=== PATIENT | male | born 1975 | race Caucasian/White ===

== ENCOUNTER → 2017-05-19 08:12 | Day surgery (SDC) | payer MEDICARE, OTHER ==
--- NOTE | 2017-05-12 03:40 | HP ---
PREOPERATIVE HISTORY AND PHYSICAL: DATE OF ADMISSION/SURGERY: 05/19/17 [facility] CHIEF COMPLAINT: Triggering of the left thumb, index, and small fingers. HISTORY OF PRESENT ILLNESS: Nathen is a 42-year-old male who has a long history of several trigger fingers. He has failed conservative treatment including cortisone injections. He presents now for left trigger thumb, little finger and index finger releases, left hand. PAST MEDICAL HISTORY: Significant for: 1. Fibromyalgia. 2. Cervical disk disease. 3. Brachial neuritis. 4. Vascular disease. 5. Ulnar neuropathy. PAST SURGICAL HISTORY: Significant for: 1. Cervical spine fusion. 2. Appendectomy. 3. Lower extremity bypass. 4. Ulnar nerve decompression. 5. Cervical fusion. MEDICATIONS: 1. Acidophilus 1 p.o. daily. 2. Atorvastatin calcium. 3. Baclofen. 4. BuSpar 5 mg 2 p.o. daily. 5. Claritin 10 mg p.o. daily p.r.n. 6. Cymbalta 60 mg p.o. daily. 7. Enalapril 20 mg p.o. daily. 8. Flaxseed oil 1000 mg p.o. daily. 9. Humalog 100 units/mL sliding scale. 10. Lyrica 150 mg p.o. t.i.d. 11. Multivitamin 1 p.o. daily. DRUG ALLERGIES: To RITALIN and TETRACYCLINE. SOCIAL HISTORY: He smokes cigarettes regularly. Denies alcohol use. He is currently not working. PHYSICAL EXAMINATION VITAL SIGNS: He is 65 inches in height, weight 146. Pulse 72, blood pressure 122/78. HEENT: Exam is unremarkable. His eye movements are concentric. NECK: He has good range of motion of his neck without pain. No masses are palpated. LUNGS: His lungs are clear to auscultation, good inspiratory effort, no wheezing. CARDIAC: Regular rate and rhythm without murmur. PERIPHERAL VASCULAR: He has palpable pulses and no peripheral edema. EXTREMITIES: He has tenderness at the A1 pulleys of the left index, thumb, and small fingers. He has history of an amputation of the ring finger. Neurovascular function is intact. NEUROLOGICAL: He is alert and oriented without focal deficits. SKIN: Intact. IMPRESSION: Trigger fingers of the left thumb, index, and small finger. PLAN: For trigger finger release, left thumb, index, and small finger. He was prescribed Ultracet for postop pain control. We will see him back in followup 10 to 14 days postop. [id number]/[facility] #: [id number] SONIDO
[~2017-05-19 08:12] MED LIST: Buffered Lidocaine 0.9% SYRIN* 5 ML/SYR SYRINGE INTRADERM ONE; Lidocaine 1% INJ* 10 MG/ML 30 ML SDV ONE; Lidocaine 2% PF * 5 ML VIAL ONE; Midazolam* 1 MG/ML 2 ML VIAL (2 MG) ONE; Propofol* 10 MG/ML 20 ML BTL IV PUSH ONE; fentaNYL* 50 MCG/ML 2 ML VIAL (100 MCG VIAL) ONE
[2017-05-19 10:09] VITALS: BP 105/62
--- NOTE | 2017-05-19 23:50 | OP ---
CC: Dr. Matthew OPERATIVE REPORT: DATE OF OPERATION: 05/19/17 DATE OF : 75 SURGEON: Sindy Matthew MD [employer] PROJECT MANAGER: PROSPER Chadwick ANESTHESIA: Local MAC. PRE-OP DIAGNOSIS: Left thumb, index, and small finger triggers. POST-OP DIAGNOSIS: Left thumb, index, and small finger triggers. OPERATIVE PROCEDURE: Left thumb, index, and small finger trigger release. INDICATION: Nathen is a 42-year-old male with triggering of his left thumb, index, and small finger. He has failed conservative treatment, presents for trigger finger release, left thumb, index, and sm all finger. ESTIMATED BLOOD LOSS: Zero. TOURNIQUET TIME: About 10 minutes. DESCRIPTION OF PROCEDURE: The patient was brought to the operating room, was given a sedation anest hetic, and a local infiltration of 10 cc of 1% plain lidocaine. The skin of his left hand and forear m was prepped and draped in the usual sterile fashion. The hand and forearm were exsanguinated and tourniquet elevated to 250 mmHg. A transverse incision was made centered over the A1 esthela of the left thumb, left index finger and left small finger. The digital neurovascular bundles were located and retracted by the surgical technology instructor, Junie Culver. Each A1 esthela was then incised longitudi isha completely releasing the flexor tendons, which showed small abrasion, but otherwise were intac t. There was some moderate amount of tenosynovitis and this was debrided. Wounds were irrigated an d the skin edges reapproximated with 4-0 nylon sutures. The wounds were dressed with Xeroform, 4x4, Webril, and an Jadiel wrap. The patient tolerated the procedure well and was brought to the recovery room in good condition. [id number]/[facility] #: [id number]
== END | disposition home or self-care (01) ==
LOC: OREAST 08:12
PROVIDERS: ATTEND Orthopaedic Surgery
DX: M65.312 Trigger thumb, left thumb (principal); M65.322 Trigger finger, left index finger; M65.352 Trigger finger, left little finger; M79.7 Fibromyalgia; Z72.0 Tobacco use; Z88.1 Allergy status to other antibiotic agents; E11.51 Type 2 diabetes mellitus with diabetic peripheral angiopathy without gangrene; Z79.4 Long term (current) use of insulin; Z96.41 Presence of insulin pump (external) (internal); I10 Essential (primary) hypertension; E11.40 Type 2 diabetes mellitus with diabetic neuropathy, unspecified; Z88.8 Allergy status to other drugs, medicaments and biological substances
CPT/HCPCS: J2001; J2250; J2704; J3010

== ENCOUNTER 2018-06-23 15:06 | Emergency (ER) | payer OTHER ==
[2018-06-23 15:24] VITALS: BP 125/78
--- NOTE | 2018-06-23 15:53 | UC ---
Complaint Male HPI - HPI Summary HPI Summary: Patient presents with a past medical history of DM1, with insulin pump, and UTI' s. He presents today with complaints of urinary urgency and frequency. He also complaints of right sided flank pain. He states these symptoms feel similar to when he has had a UTI. He denies fever, vomiting, diarrhea or anorexia. He does complain of chills and nausea. - History of Current Complaint Chief Complaint: UCGU Stated Complaint: URINARY COMPLAINT Time Seen by Provider: 06/23/18 15:36 Hx Obtained From: Patient Onset/Duration: Gradual Onset, Lasting Hours Timing: Constant Severity Initially: Moderate Severity Currently: Moderate Pain Intensity: 7 Character: Burning Aggravating Factor(s): Voiding Associated Signs And Symptoms: Positive: Back Pain - Allergies/Home Medications Allergies/Adverse Reactions: Allergies Allergy/AdvReac Type Severity Reaction Status Date / Time methylphenidate Allergy Severe Hives/Diff. Verified 06/23/18 15:24 [From Ritalin] Breathing/I tching lactose Allergy Intermediate Diarrhea Verified 06/23/18 15:24 ragweed pollen Allergy Mild Itching Verified 06/23/18 15:24 PMH/Surg Hx/FS Hx/Imm Hx Previously Healthy: Yes Endocrine History: Diabetes Other History Of: Anticoagulant Therapy - plavix - Surgical History Surgical History: Yes Surgery Procedure, Year, and Place: bilateral ulnar nerve decompression 10/2013. CERVICAL FUSION C6-C7, 10/2012, [facility], ACDF in December2016. KNEE MENISCUS REPAIR [place] [place] HIATAL HERNIA REPAIR[place] [place]. LEFT RING FINGER AMPUTATION, 2008,,. bilateral angioplasty legs 07/26/13, - NO STENTS. ANGIOPLASTY TO LEFT AND RIGHT ILIAC AND RIGHT FEMORAL FEBRUARY 19 2013 - [facility] - NO STENTS. RIGHT HAND CARPAL [id number] AND Lt - 2012. aug 2017 - dental extraction. 2016 - Lt TRIGGER FINGER. APPENDECTOMY. 04/2018 - lumbar spine surgery L4-L5 - Family History Known Family History: Positive: Unknown, Hypertension, Other - Dyslipidemia - Social History Occupation: Disabled Lives: Alone Alcohol Use: None Substance Use Type: None Substance Use Comment - Amount & Last Used: Medical Marijuana Smoking Status (MU): Current Every Day Smoker Type: Cigarettes Amount Used/How Often: 1 PPD Length of Time of Smoking/Using Tobacco: 20+ yrs Have You Smoked in the Last Year: Yes When Did the Patient Quit Smoking/Using Tobacco: 02/2013 Household Exposure Type: Cigarettes - Immunization History Most Recent Influenza Vaccination: 04/30/2013 Most Recent Tetanus Shot: 02/17/2011 Most Recent Pneumonia Vaccination: 2002 Review of Systems Constitutional: Negative Skin: Negative Eyes: Negative ENT: Negative Respiratory: Negative Cardiovascular: Negative Gastrointestinal: Negative Genitourinary: Negative Motor: Negative Neurovascular: Negative Musculoskeletal: Negative Neurological: Negative Psychological: Negative Is Patient Immunocompromised?: No All Other Systems Reviewed And Are Negative: Yes Physical Exam Triage Information Reviewed: Yes Appearance: Well-Appearing Vital Signs: Initial Vital Signs Temp 98.3 F 06/23/18 15:18 Pulse 86 06/23/18 15:18 Resp 16 06/23/18 15:18 BP 125/78 06/23/18 15:18 Pulse Ox 98 06/23/18 15:18 Eye Exam: Normal ENT Exam: Normal Neck exam: Normal Neck: Positive: 1 Respiratory Exam: Normal Cardiovascular Exam: Normal Abdominal Exam: Normal Musculoskeletal Exam: Normal Neurological Exam: Normal Psychological Exam: Normal Skin Exam: Normal Complaint Male Course/Dx - Course Course Of Treatment: Patient presents with a past medical history of DM1, with insulin pump. He states his glucose level was elevated eariler today in th 300's , so he skipped lunch. He presents with urinary urgency and frequency. A UA was obtained with 2+ glucose otherwise normal. His urinary symptoms could be undetectable UTI, and or glucosuria. I encouraged the patient to monitor his glucose level, increase fluids and if his symptoms persist to return tomorrow for re-evaluation and repeat UA. He had normal VS and was afebile and otherwise stable for outpatient follow up. He verbatlized understanding and in agreement with the discharge plan. - Differential Dx/Diagnosis Differential Diagnosis/HQI/PQRI: Other - Urinary urgency,Urinary frequency. glucosuria Provider Diagnoses: Urinary urgency. Urinary Frequency. Glucosuria Discharge - Sign-Out/Discharge Documenting (check all that apply): Patient Departure All imaging exams completed and their final reports reviewed: No Studies - Discharge Plan Condition: Stable Disposition: HOME Patient Education Materials: Urinary Urgency and Frequency (DC) Referrals: Matthieu Partida MD [Primary Care Provider] - - Billing Disposition and Condition Condition: STABLE Disposition: Home - Attestation Statements Document Initiated by Rajwinderibalma rosa: Nury
== END 2018-06-23 15:53 | disposition home or self-care (01) ==
LOC: UCEAST 15:06
DX: R39.15 Urgency of urination (principal); R81 Glycosuria; E10.9 Type 1 diabetes mellitus without complications; F17.210 Nicotine dependence, cigarettes, uncomplicated; Z79.4 Long term (current) use of insulin; Z88.8 Allergy status to other drugs, medicaments and biological substances; Z91.011 Allergy to milk products; Z91.018 Allergy to other foods
CPT/HCPCS: 81003; 99212; G0463

== ENCOUNTER 2019-03-11 10:46 | Emergency (ER) | payer MEDICARE ==
[2019-03-11 10:55] VITALS: BP 128/72
--- NOTE | 2019-03-11 11:44 | UC ---
Skin Complaint HPI - HPI Summary HPI Summary: 44-year-old male with history of type 1 diabetes presents with complaints of bee sting to the right arm with redness and tenderness that has progressively increased over the last 2 days. Denies fever, chills, swelling of the lips, tongue, throat, or difficulty breathing. - History of Current Complaint Chief Complaint: UCSkin Time Seen by Provider: 03/11/19 11:09 Stated Complaint: SKIN ISSUE Hx Obtained From: Patient Pain Intensity: 6 - Allergy/Home Medications Allergies/Adverse Reactions: Allergies Allergy/AdvReac Type Severity Reaction Status Date / Time methylphenidate Allergy Severe Hives/Diff. Verified 03/11/19 10:56 [From Ritalin] Breathing/I tching lactose Allergy Intermediate Diarrhea Verified 03/11/19 10:56 ragweed pollen Allergy Mild Itching Verified 03/11/19 10:56 Home Medications: Home Medications Hydrocodone/Acetaminophen [Vicodin 5-300 mg] 0.5 tab PO Q6HR 03/11/19 [History Confirmed 03/11/19] diphenhydrAMINE HCl [Benadryl Allergy] 25 mg PO DAILY WITH MEAL 03/11/19 [ History Confirmed 03/11/19] PMH/Surg Hx/FS Hx/Imm Hx Endocrine History: Diabetes, Dyslipidemia Cardiovascular History: Hypertension, Other - PAD GI/ History: Gastroesophageal Reflux Psychological History: Depression Other History Of: Anticoagulant Therapy - plavix - Surgical History Surgical History: Yes Surgery Procedure, Year, and Place: bilateral ulnar nerve decompression 10/2013. CERVICAL FUSION C6-C7, 10/2012, [facility], ACDF in December2016. KNEE MENISCUS REPAIR BILATERAL-[facility] – [place]. HIATAL HERNIA REPAIR-[facility] – [place], 1999. LEFT RING FINGER AMPUTATION, 2008,,. bilateral angioplasty legs 07/26/13, - NO STENTS. ANGIOPLASTY TO LEFT AND RIGHT ILIAC AND RIGHT FEMORAL FEBRUARY 19 2013 - [facility] - NO STENTS. RIGHT HAND CARPAL [id number] AND Lt - 2012. aug 2017 - dental extraction. 2016 - TRIGGER FINGER. APPENDECTOMY. 04/2018 - lumbar spine surgery L4-L5 - Family History Known Family History: Positive: Hypertension, Other - Dyslipidemia - Social History Occupation: Disabled Lives: With Family Alcohol Use: None Substance Use Type: Marijuana Substance Use Comment - Amount & Last Used: Medical Marijuana Smoking Status (MU): Heavy Every Day Tobacco Smoker Type: Cigarettes Amount Used/How Often: 12 cigarettes/day Length of Time of Smoking/Using Tobacco: 20+ yrs Have You Smoked in the Last Year: Yes When Did the Patient Quit Smoking/Using Tobacco: 02/2013 Household Exposure Type: Cigarettes - Immunization History Most Recent Influenza Vaccination: 04/30/2013 Most Recent Tetanus Shot: 02/17/2011 Most Recent Pneumonia Vaccination: 2002 Review of Systems All Other Systems Reviewed And Are Negative: Yes Constitutional: Negative: Fever, Chills Skin: Positive: Other - See HPI Respiratory: Positive: Negative Cardiovascular: Positive: Negative Gastrointestinal: Positive: Negative Genitourinary: Positive: Negative Musculoskeletal: Positive: Negative Neurological: Positive: Negative Physical Exam - Summary Physical Exam Summary: GENERAL APPEARANCE: Well developed, well nourished, alert and cooperative, and appears to be in no acute distress. CARDIAC: Normal S1 and S2. No S3, S4 or murmurs. Rhythm is regular. There is no peripheral edema, cyanosis or pallor. Extremities are warm and well perfused. Capillary refill is less than 2 seconds. Peripheral pulses intact. LUNGS: Clear to auscultation without rales, rhonchi, wheezing or diminished breath sounds. ABDOMEN: Positive bowel sounds. Soft, nondistended, nontender. No guarding or rebound. No masses or hepatosplenomegally. MUSKULOSKELETAL: ROM intact to all extremities. No joint erythema or tenderness. Normal muscular development. Normal gait. EXTREMITIES: Patient with full sleeve tattoo to the right arm. There is erythema noted to the uninked portions of the distal right upper arm and proximal forearm with increased warmth. No induration, fluctuance, or edema noted. Circulation and sensation intact. SKIN: Skin normal color, texture and turgor. Triage Information Reviewed: Yes Vital Signs: Initial Vital Signs Temp 98.7 F 03/11/19 10:52 Pulse 83 03/11/19 10:52 Resp 15 03/11/19 10:52 BP 128/72 03/11/19 10:52 Pulse Ox 100 03/11/19 10:52 Vital Signs Reviewed: Yes Course/Dx - Course Course Of Treatment: 44-year-old male with history of type 1 diabetes presents with complaints of bee sting to the right arm with redness and tenderness that has progressively increased over the last 2 days. Denies fever, chills, swelling of the lips, tongue, throat, or difficulty breathing. Afebrile. Vital signs stable. Patient with full sleeve tattoo to the right arm. There is erythema noted to the uninked portions of the distal right upper arm and proximal forearm with increased warmth. No induration, fluctuance, or edema noted. Circulation and sensation intact. Remainder of exam unremarkable. Discussed with the patient his symptoms may represent a severe localized reaction however with his history of diabetes and the fact that the redness has continued to spread I am concerned that this may be a cellulitis and am recommending that we treat with cephalexin 500 mg 3 times a day 7 days. He is to follow-up with his primary care provider in 3 days if symptoms are not improving. Anticipatory guidance and warning symptoms were reviewed with the patient. Verbalizes understanding and agrees with plan of care. - Differential Diagnoses - Skin Complaint Differential Diagnoses: Abscess, Cellulitis, Local Allergic Reaction - Diagnoses Provider Diagnosis: Cellulitis of right forearm Discharge - Sign-Out/Discharge Documenting (check all that apply): Patient Departure All imaging exams completed and their final reports reviewed: No Studies - Discharge Plan Condition: Stable Disposition: HOME Prescriptions: cephALEXin [Keflex] 500 mg PO TID #21 capsule Patient Education Materials: Cellulitis (ED) Referrals: Matthieu Partida MD [Primary Care Provider] - 3 Days Additional Instructions: The redness and swelling to her arm may be a severe localized reaction to the bee sting however with your history of diabetes, progressively worsening redness , and increased warmth we will treat you for a possible skin infection called cellulitis and starch on an antibiotic. Take cephalexin 500 mg 3 times a day for 7 days. Continue to take diphenhydramine (Benadryl) according to directions as needed for itching. Try applying a cool compress to the effected area for 15-20 minutes at least 4 times a day to help with the swelling. Follow-up with your primary care provider in 3 days if her symptoms are not improving. Seek immediate medical attention in the emergency room if you develop a fever greater than 100.5 F, have severe pain that is not managed with over-the- counter pain medication, redness that continues to spread, or any worsening of symptoms. - Billing Disposition and Condition Condition: STABLE Disposition: Home
== END 2019-03-11 12:01 | disposition home or self-care (01) ==
LOC: UCEAST 10:46
DX: T63.441A Toxic effect of venom of bees, accidental (unintentional), initial encounter (principal); L03.113 Cellulitis of right upper limb; W57.XXXA Bitten or stung by nonvenomous insect and other nonvenomous arthropods, initial encounter; Y92.9 Unspecified place or not applicable; E78.5 Hyperlipidemia, unspecified; E11.9 Type 2 diabetes mellitus without complications; I10 Essential (primary) hypertension; K21.9 Gastro-esophageal reflux disease without esophagitis; F32.9 Major depressive disorder, single episode, unspecified; F17.210 Nicotine dependence, cigarettes, uncomplicated; Z79.01 Long term (current) use of anticoagulants
CPT/HCPCS: 99212; G0463